=== PATIENT | female | born 1945 | race Caucasian/White ===

== ENCOUNTER → 2016-11-15 | Outpatient (CLI) | payer OTHER ==
[~2016-11-15] MED LIST: ALBUTEROL17 GM INH; LEXAPRO; NERVE MED
--- NOTE | ~2016-11-15 | CT2 ---
[facility] A Service of [facility] RADIOLOGY TEXT RESULTS PATIENT: TRAE BRADLEY LOCATION: [facility] : 47 UNIT #: [id number] AGE: [address]: Cecilia Martinez MD SEX: F ORDER DR: [id number] [facility]. [place], [place] [address] [id number] O MR#: [id number] Acc #: [id number] NAME: TRAE BRADLEY : 1945 SEX: F STUDY DATE/TIME: 11/15/2016 14:20 UNIT: [facility] ROOM: STUDY DESCRIPTION: CT Abd and Pelv W Cont Attending Physician: Cecilia Martinez M.D. Referring Physician: Cecilia Martinez M.D. Ordering Physician: Cecilia Martinez M.D. Primary Care Physician: Ruddy Crain M.D. MEDICAL IMAGING REPORT This report is preliminary unless electronic signature is present EXAM CT of the abdomen and pelvis without contrast INDICATIONS 71-year-old female with followup lymphoma. Observation of a malignant process. TECHNIQUE CT abdomen and pelvis was performed following the administration of oral and IV contrast. Coronal and sagittal reformatted images were obtained. This CT exam was performed with one or more of the following radiation dose reduction techniques: automatic exposure control, adjustment of mA and/or kV according to patient size, and iterative reconstruction. COMPARISON 03/09/2016 FINDINGS The liver, gallbladder are unremarkable. Splenectomy. The kidneys are unremarkable. The adrenal glands are unremarkable. The pancreas is unremarkable. There is no evidence of ascites. Stable fat-containing abdominal wall hernias. Pelvis: Scattered diverticula within the colon. There is no free fluid. No evidence for pelvic mass or lymphadenopathy. Bone windows demonstrate a left hip arthroplasty. IMPRESSION No evidence for lymphadenopathy. Dictated by... Karthikeyan De Luna M.D. [facility] A Service [facility] RADIOLOGY TEXT RESULTS PATIENT: TRAE BRADLEY LOCATION: [facility] : 47 UNIT #: [id number] AGE: [address]: Cecilia Martinez MD SEX: F ORDER DR: THIS IS AN ELECTRONICALLY VERIFIED REPORT Karthikeyan De Luna M.D. at 11/17/2016 11:31 AM ARS/neymar TD: 11/16/2016 15:47 JOB #: [id number] MEDICAL IMAGING REPORT Page 1 of 1 COPY
--- NOTE | ~2016-11-15 | CT55 ---
[facility] A Service of [facility] RADIOLOGY TEXT RESULTS PATIENT: TRAE BRADLEY LOCATION: [facility] : 47 UNIT #: [id number] AGE: [address]: Cecilia Martinez MD SEX: F ORDER DR: [id number] [facility]. [place], [place] [address] [id number] O MR#: [id number] Acc #: [id number] NAME: TRAE BRADLEY : 1945 SEX: F STUDY DATE/TIME: 11/15/2016 14:20 UNIT: [facility] ROOM: STUDY DESCRIPTION: CT Chest W Con Attending Physician: Cecilia Martinez M.D. Referring Physician: Cecilia Martienz M.D. Ordering Physician: Cecilia Martinez M.D. Primary Care Physician: Ruddy Crain M.D. MEDICAL IMAGING REPORT This report is preliminary unless electronic signature is present EXAM CT chest with contrast. INDICATIONS 71-year-old female with followup lymphoma. Observation of a malignant process. TECHNIQUE CT chest performed following the administration of IV contrast. Coronal and sagittal reformatted images obtained. This CT exam was performed with one or more of the following radiation dose reduction techniques: automatic exposure control, adjustment of mA and/or kV according to patient size, and iterative reconstruction. COMPARISON 03/09/2016. FINDINGS Stable scarring in the right lung apex. Emphysema. Postop changes left lung. No lymphadenopathy or pleural effusion. Bone windows are unremarkable. IMPRESSION No evidence of lymphadenopathy. Dictated by... Karthikeyan De Luna M.D. THIS IS AN ELECTRONICALLY VERIFIED REPORT Karthikeyan De Luna M.D. at 11/17/2016 11:31 AM ARS/gz [facility] A Service of [facility] RADIOLOGY TEXT RESULTS PATIENT: TRAE BRADLEY LOCATION: [facility] : 47 UNIT #: [id number] AGE: [address]: Cecilia Martinez MD SEX: F ORDER DR: TD: 11/16/2016 15:34 JOB #: [id number] MEDICAL IMAGING REPORT Page 1 of 1 COPY
[2016-11-15 15:05] LABS: POC - CREATININE 0.83 mg/dL (0.44-1.03); POC - GFR >60.0 mL/min (>60)
== END | disposition home or self-care (01) ==
LOC: CCAT 13:02
PROVIDERS: Internal Medicine Hematology
DX: C85.98 Non-Hodgkin lymphoma, unspecified, lymph nodes of multiple sites (principal); C85.10 Unspecified B-cell lymphoma, unspecified site; C34.90 Malignant neoplasm of unspecified part of unspecified bronchus or lung; D46.B Refractory cytopenia with multilineage dysplasia and ring sideroblasts
CPT/HCPCS: 71260; 74177; 82565; Q9967